=== PATIENT | female | born 1965 | race Caucasian/White ===

== ENCOUNTER 2017-04-26 12:02 | Inpatient (IN) | payer MEDICAID, OTHER ==
[~2017-04-26] VITALS: Ht 165.1 cm; Wt 83.0 kg
[~2017-04-26 12:02] MED LIST: ATOR10TA PO; BUME2TAB3 PO; COR6 PO; DIPH25CA83 PO; DOCU-138 PO; FAMO-135 PO; FURO-151 PO; GABA100C PO; LISI10TA5 PO; MAGN400C PO; MULT-1146 PO; MYCO180T PO; PRED5TAB PO; PROG1 PO; SULF1TAB47 PO; TRAM50TA73 PO; VALC450 PO; [UNRECOGNIZED DRUG - CODE] PO; [UNRECOGNIZED DRUG - CODE] PO
[2017-04-26 14:21] LABS: BASOPHILS % 0.5 % (0.0-2.0); EOSINOPHILS % 1.1 % (0.0-5.0); HEMATOCRIT. 32.4 % (36.0-48.0); HEMOGLOBIN. 10.5 g/dL (12.0-16.0); LYMPHOCYTES % 11.6 % (20.0-50.0); MEAN CORPUSCULAR HEMOGLOBIN 29.9 pg (28.0-32.0); MEAN PLATELET VOLUME 7.1 fl (7.4-10.4); MONOCYTES % 7.4 % (2.0-8.0); NEUTROPHILS % 79.4 % (40.0-76.0); PLATELET 155 x1000/uL (130-400); RED BLOOD CELL COUNT 3.52 mill/uL (4.2-5.4); RED CELL DISTRIBUTION WIDTH 15.8 % (11.6-14.6)
[2017-04-26 14:24] LABS: INR 1.1; PROTHROMBIN TIME 11.4 sec (9.4-11.6)
[2017-04-26 14:32] LABS: CARBON DIOXIDE 18 mEq/L (21-32); CHLORIDE 115 mEq/L (98-107); TROPONIN I < 0.02 ng/mL (0.00-0.04)
[2017-04-26] MEDS ORDERED: FUROSEMIDE 40MG/4ML VIAL IVP ONE (15:15)
[2017-04-26 22:30] VITALS: BP 167/64
[2017-04-26 22:50] VITALS: BP 140/58
[2017-04-26] MEDS ORDERED: SULFAMETHOXAZOLE/TRIMETHOPRIM 400/80MG TAB PO SCH (23:45)
[2017-04-26] MEDS ORDERED: METOCLOPRAMIDE HCL 10MG TABLET PO SCH (23:45)
[2017-04-26] MEDS ORDERED: SULF1TAB47 PO (23:47)
[2017-04-26] MEDS ORDERED: FERR325T6 PO (23:47)
[2017-04-26] MEDS ORDERED: TYLENOL #3 PO (23:47)
[2017-04-26] MEDS ORDERED: ZOLP5TAB2 PO (23:47)
[2017-04-26] MEDS ORDERED: HYDR200T35 PO (23:47)
[2017-04-26] MEDS ORDERED: METO-293 PO (23:47)
[2017-04-26] MEDS ORDERED: AMLO5TAB4 PO (23:47)
[2017-04-26] MEDS ORDERED: ALLO100T PO (23:47)
[2017-04-26] MEDS ORDERED: PROG1 PO (23:48)
[2017-04-27] VITALS: BP 140/58
[2017-04-27] MEDS ORDERED: ZOLPIDEM TARTRATE 5MG TABLET PO PRN
[2017-04-27] MEDS ORDERED: CLONIDINE 0.1MG TABLET PO PRN
[2017-04-27] MEDS: HYDROXYCHLOROQUINE SULFATE 200MG TABLET PO SCH ×3 (00:30→17:59)
[2017-04-27] MEDS ORDERED: DOCUSATE SODIUM 100MG CAPSULE PO PRN (00:30)
[2017-04-27] MEDS ORDERED: TACROLIMUS 0.5 MG CAPSULE PO SCH (01:00)
[2017-04-27] MEDS ORDERED: TACROLIMUS 1MG CAPSULE PO SCH (01:00)
[2017-04-27] MEDS ORDERED: MYCOPHENOLATE SODIUM 180 MG TABLET.DR PO SCH (01:00)
[2017-04-27 04:00] VITALS: BP 126/46
[2017-04-27 04:03] LABS: CREATINE KINASE 48 IU/L (26-192); CREATINE KINASE MB FRACTION 0.5 ng/mL (0.5-3.6); TROPONIN I < 0.02 ng/mL (0.00-0.04)
[2017-04-27 08:00] VITALS: BP 127/57
[2017-04-27] MEDS: CARVEDILOL 6.25 MG TABLET PO SCH ×2 (09:00→20:15)
[2017-04-27] MEDS: FAMOTIDINE 20MG TABLET PO SCH (09:02)
[2017-04-27] MEDS: PREDNISONE 5MG TABLET PO SCH (09:02)
[2017-04-27] MEDS: AMLODIPINE 5MG TABLET PO SCH (09:03)
[2017-04-27] MEDS: FERROUS SULFATE 325MG TABLET PO SCH ×3 (09:03→17:55)
[2017-04-27] MEDS: TACROLIMUS 0.5 MG CAPSULE PO SCH ×2 (09:03→20:14)
[2017-04-27] MEDS: MYCOPHENOLATE SODIUM 180 MG TABLET.DR PO SCH ×2 (09:04→20:17)
[2017-04-27] MEDS: ALLOPURINOL 100 MG TABLET PO SCH (09:05)
[2017-04-27] MEDS: METOCLOPRAMIDE HCL 5MG TABLET PO PRN ×2 (09:14→20:15)
[2017-04-27 09:52] LABS: CREATINE KINASE 43 IU/L (26-192); CREATINE KINASE MB FRACTION < 0.5 ng/mL (0.5-3.6); TROPONIN I < 0.02 ng/mL (0.00-0.04)
[2017-04-27 12:00] VITALS: BP 132/55
[2017-04-27] MEDS: TACROLIMUS 1MG CAPSULE PO SCH ×2 (12:06→20:14)
[2017-04-27 16:00] VITALS: BP 123/59
[2017-04-27 20:00] VITALS: BP 149/53
[2017-04-27 20:41] LABS: BASOPHILS % 0.4 % (0.0-2.0); EOSINOPHILS % 0.9 % (0.0-5.0); HEMATOCRIT. 35.7 % (36.0-48.0); HEMOGLOBIN. 11.6 g/dL (12.0-16.0); LYMPHOCYTES % 13.2 % (20.0-50.0); MEAN CORPUSCULAR HEMOGLOBIN 29.9 pg (28.0-32.0); MEAN CORPUSCULAR VOLUME 91.9 fL (81.0-99.0); MEAN PLATELET VOLUME 7.6 fl (7.4-10.4); MONOCYTES % 8.5 % (2.0-8.0); PLATELET 175 x1000/uL (130-400); RED BLOOD CELL COUNT 3.88 mill/uL (4.2-5.4); RED CELL DISTRIBUTION WIDTH 15.8 % (11.6-14.6)
[2017-04-27 20:57] LABS: CARBON DIOXIDE 19 mEq/L (21-32); CHLORIDE 113 mEq/L (98-107); HDL CHOLESTEROL 78 mg/dL (40-59); LDL CHOLESTEROL 82 mg/dL (5-100)
[2017-04-27 20:58] LABS: TROPONIN I < 0.02 ng/mL (0.00-0.04)
[2017-04-27] MEDS ORDERED: ATORVASTATIN CALCIUM 10MG TABLET PO SCH (21:00)
[2017-04-27] MEDS: ACETAMINOPHEN WITH CODEINE 300/30MG TABLET PO PRN (23:03)
[2017-04-28 00:01] VITALS: BP 151/62
[2017-04-28 04:00] VITALS: BP 119/52
[2017-04-28] MEDS: TACROLIMUS 0.5 MG CAPSULE PO SCH (07:08)
[2017-04-28] MEDS: TACROLIMUS 1MG CAPSULE PO SCH (07:08)
[2017-04-28 08:04] VITALS: BP 137/55
[2017-04-28] MEDS: MYCOPHENOLATE SODIUM 180 MG TABLET.DR PO SCH (08:33)
[2017-04-28] MEDS: ALLOPURINOL 100 MG TABLET PO SCH (08:33)
[2017-04-28] MEDS: FERROUS SULFATE 325MG TABLET PO SCH ×3 (08:33→17:42)
[2017-04-28] MEDS: HYDROXYCHLOROQUINE SULFATE 200MG TABLET PO SCH ×2 (08:33→17:42)
[2017-04-28] MEDS: PREDNISONE 5MG TABLET PO SCH (08:33)
[2017-04-28] MEDS: CARVEDILOL 6.25 MG TABLET PO SCH (08:34)
[2017-04-28] MEDS: AMLODIPINE 5MG TABLET PO SCH (08:34)
[2017-04-28] MEDS: FAMOTIDINE 20MG TABLET PO SCH (08:34)
[2017-04-28] MEDS ORDERED: SODIUM POLYSTYRENE SULFONATE 15 G/60 ML BOT PO SCH (08:45)
[2017-04-28] MEDS: ACETAMINOPHEN WITH CODEINE 300/30MG TABLET PO PRN (11:48)
[2017-04-28 12:00] VITALS: BP 146/59
[2017-04-28 16:00] VITALS: BP 140/58
[2017-04-28 17:34] VITALS: BP 140/58
[2017-04-29] MEDS ORDERED: SULFAMETHOXAZOLE/TRIMETHOPRIM 400/80MG TAB PO SCH (09:00)
== END 2017-04-28 19:00 | disposition home or self-care (01) | DRG 194 ==
LOC: ER 12:15 → 7WST 15:33 → ENRESERV 20:47
PROVIDERS: ADMIT Family Medicine; ATTEND Family Medicine
DX: I13.0 Hypertensive heart and chronic kidney disease with heart failure and stage 1 through stage 4 chronic kidney disease, or unspecified chronic kidney disease (principal); M32.9 Systemic lupus erythematosus, unspecified; N18.3 Chronic kidney disease, stage 3 (moderate); I50.33 Acute on chronic diastolic (congestive) heart failure; E87.5 Hyperkalemia; Z94.0 Kidney transplant status; M19.90 Unspecified osteoarthritis, unspecified site; E21.3 Hyperparathyroidism, unspecified; E78.5 Hyperlipidemia, unspecified; Z79.899 Other long term (current) drug therapy; Z82.49 Family history of ischemic heart disease and other diseases of the circulatory system; Z83.3 Family history of diabetes mellitus; Z99.2 Dependence on renal dialysis; Z98.51 Tubal ligation status; K21.9 Gastro-esophageal reflux disease without esophagitis; D63.8 Anemia in other chronic diseases classified elsewhere
CPT/HCPCS: 36415; 71010; 80053; 80061; 80197; 82550; 82553; 83036; 83880; 84132; 84484; 85025; 85610; 93005; 99285; J1940; J7507; J7512; J7517; J8597

== ENCOUNTER 2017-06-01 16:53 | Inpatient (IN) | payer MEDICAID, OTHER ==
[~2017-06-01] VITALS: Ht 165.1 cm; Wt 81.0 kg
[~2017-06-01 16:53] MED LIST changes: +ALLO100T PO; +AMLO5TAB4 PO; -BUME2TAB3 PO; -DIPH25CA83 PO; -DOCU-138 PO; +FERR325T6 PO; -FURO-151 PO; -GABA100C PO; +HYDR200T35 PO; -LISI10TA5 PO; -MULT-1146 PO; -TRAM50TA73 PO; +TYLENOL #3 PO; -VALC450 PO; -[UNRECOGNIZED DRUG - CODE] PO
[2017-06-01 18:57] LABS: BASOPHILS % 0.3 % (0.0-2.0); EOSINOPHILS % 0.8 % (0.0-5.0); HEMATOCRIT. 33.5 % (36.0-48.0); HEMOGLOBIN. 11.1 g/dL (12.0-16.0); LYMPHOCYTES % 12.3 % (20.0-50.0); MEAN CORPUSCULAR HEMOGLOBIN 30.8 pg (28.0-32.0); MEAN CORPUSCULAR VOLUME 92.9 fL (81.0-99.0); MEAN PLATELET VOLUME 7.1 fl (7.4-10.4); NEUTROPHILS % 78.6 % (40.0-76.0); PLATELET 182 x1000/uL (130-400); RED BLOOD CELL COUNT 3.61 mill/uL (4.2-5.4); RED CELL DISTRIBUTION WIDTH 15.2 % (11.6-14.6)
[2017-06-01 19:13] LABS: CARBON DIOXIDE 24 mEq/L (21-32); CHLORIDE 109 mEq/L (98-107); TROPONIN I < 0.02 ng/mL (0.00-0.04)
[2017-06-02 01:30] VITALS: BP 165/70
[2017-06-02] MEDS ORDERED: ZOLP10TA6 PO (02:02)
[2017-06-02] MEDS ORDERED: SODI650T PO (02:09)
[2017-06-02] MEDS ORDERED: MULT-904 PO (02:09)
[2017-06-02] MEDS ORDERED: MYCO180T3 PO (02:10)
[2017-06-02] MEDS ORDERED: LISI-604 PO (02:10)
[2017-06-02] MEDS ORDERED: MORPHINE SULFATE 10 MG/ML CPJ IV PRN (02:15)
[2017-06-02] MEDS ORDERED: TYLENOL PO SCH (02:15)
[2017-06-02] MEDS: ACETAMINOPHEN WITH CODEINE 300/30MG TABLET PO PRN ×2 (02:47→09:07)
[2017-06-02] MEDS: ZOLPIDEM TARTRATE 5MG TABLET PO PRN (02:47)
[2017-06-02 03:54] VITALS: BP 123/49
[2017-06-02 06:40] LABS: BASOPHILS % 0.4 % (0.0-2.0); EOSINOPHILS % 1.5 % (0.0-5.0); HEMATOCRIT. 31.6 % (36.0-48.0); HEMOGLOBIN. 10.5 g/dL (12.0-16.0); LYMPHOCYTES % 20.6 % (20.0-50.0); MEAN CORPUSCULAR HEMOGLOBIN 30.6 pg (28.0-32.0); MEAN CORPUSCULAR VOLUME 91.5 fL (81.0-99.0); MEAN PLATELET VOLUME 7.3 fl (7.4-10.4); NEUTROPHILS % 66.5 % (40.0-76.0); PLATELET 171 x1000/uL (130-400); RED BLOOD CELL COUNT 3.45 mill/uL (4.2-5.4); RED CELL DISTRIBUTION WIDTH 14.6 % (11.6-14.6)
[2017-06-02 08:00] VITALS: BP 132/61
[2017-06-02] MEDS ORDERED: MULTIVITAMINS PO SCH (09:00)
[2017-06-02] MEDS ORDERED: MYCOPHENOLATE SODIUM 180 MG TABLET.DR PO SCH (09:00)
[2017-06-02] MEDS: CARVEDILOL 6.25 MG TABLET PO SCH ×2 (09:00→16:57)
[2017-06-02] MEDS ORDERED: MEDICATION NOT ON FORMULARY EA (Magnesium Oxide (Magnesium) 400 MG) PO SCH (09:00)
[2017-06-02] MEDS: PREDNISONE 5MG TABLET PO SCH (09:07)
[2017-06-02] MEDS: ALLOPURINOL 100 MG TABLET PO SCH (09:07)
[2017-06-02] MEDS: MULTIVITAMINS,THER W-MINERALS TABLET PO SCH (09:07)
[2017-06-02] MEDS: HYDROXYCHLOROQUINE SULFATE 200MG TABLET PO SCH ×2 (09:08→17:00)
[2017-06-02] MEDS: SODIUM BICARBONATE 650 MG TABLET PO SCH ×2 (09:08→16:58)
[2017-06-02] MEDS: AMLODIPINE 10MG TABLET PO SCH (09:08)
[2017-06-02] MEDS: LISINOPRIL 20MG TABLET PO SCH ×2 (09:08→21:24)
[2017-06-02] MEDS: MAGNESIUM OXIDE 400MG TABLET PO SCH ×3 (09:08→17:00)
[2017-06-02] MEDS: FAMOTIDINE 20MG TABLET PO SCH (09:09)
[2017-06-02] MEDS: TACROLIMUS 1MG CAPSULE PO SCH ×2 (09:10→16:59)
[2017-06-02] MEDS: MYCOPHENOLATE SODIUM 180 MG TABLET.DR PO SCH ×2 (10:48→17:00)
[2017-06-02] MEDS: TACROLIMUS 0.5 MG CAPSULE PO SCH ×2 (10:51→16:59)
[2017-06-02 12:00] VITALS: BP 136/58
[2017-06-02 16:00] VITALS: BP 132/56
[2017-06-02] MEDS ORDERED: MEDICATION NOT ON FORMULARY EA (Zolpidem Tartrate 1 TAB) PO SCH ×2 (17:00)
[2017-06-02 20:00] VITALS: BP 152/70
[2017-06-02] MEDS ORDERED: ATORVASTATIN CALCIUM 10MG TABLET PO SCH (21:00)
[2017-06-03] MEDS: ZOLPIDEM TARTRATE 5MG TABLET PO PRN (00:21)
[2017-06-03 00:27] VITALS: BP 141/62
[2017-06-03 04:00] VITALS: BP 152/58
[2017-06-03 08:00] VITALS: BP 141/56
[2017-06-03] MEDS: HYDROXYCHLOROQUINE SULFATE 200MG TABLET PO SCH (08:21)
[2017-06-03] MEDS: MYCOPHENOLATE SODIUM 180 MG TABLET.DR PO SCH (08:22)
[2017-06-03] MEDS: MULTIVITAMINS,THER W-MINERALS TABLET PO SCH (08:22)
[2017-06-03] MEDS: LISINOPRIL 20MG TABLET PO SCH (08:22)
[2017-06-03] MEDS: TACROLIMUS 0.5 MG CAPSULE PO SCH (08:23)
[2017-06-03] MEDS: ALLOPURINOL 100 MG TABLET PO SCH (08:24)
[2017-06-03] MEDS: FAMOTIDINE 20MG TABLET PO SCH (08:24)
[2017-06-03] MEDS: MAGNESIUM OXIDE 400MG TABLET PO SCH ×2 (08:24→12:35)
[2017-06-03] MEDS: TACROLIMUS 1MG CAPSULE PO SCH (08:24)
[2017-06-03] MEDS: AMLODIPINE 10MG TABLET PO SCH (08:24)
[2017-06-03] MEDS: PREDNISONE 5MG TABLET PO SCH (08:25)
[2017-06-03] MEDS: SODIUM BICARBONATE 650 MG TABLET PO SCH (08:25)
[2017-06-03] MEDS: CARVEDILOL 6.25 MG TABLET PO SCH (08:25)
[2017-06-03 12:00] VITALS: BP 105/48
[2017-06-03 14:55] VITALS: BP 141/61
[2017-06-08] MEDS ORDERED: ERGOCALCIFEROL 50000UNITS CAPSULE PO SCH (09:00)
== END 2017-06-03 15:50 | disposition home or self-care (01) | DRG 351 ==
LOC: ER 19:19 → ENRESERV 06-02 00:28 → 5WST 06-02 02:09
PROVIDERS: ADMIT Internal Medicine; ATTEND Internal Medicine
DX: M79.89 Other specified soft tissue disorders (principal); I50.43 Acute on chronic combined systolic (congestive) and diastolic (congestive) heart failure; N17.9 Acute kidney failure, unspecified; I13.2 Hypertensive heart and chronic kidney disease with heart failure and with stage 5 chronic kidney disease, or end stage renal disease; E78.5 Hyperlipidemia, unspecified; I25.10 Atherosclerotic heart disease of native coronary artery without angina pectoris; M19.90 Unspecified osteoarthritis, unspecified site; J44.9 Chronic obstructive pulmonary disease, unspecified; E78.00 Pure hypercholesterolemia, unspecified; Z79.899 Other long term (current) drug therapy; Z82.49 Family history of ischemic heart disease and other diseases of the circulatory system; Z94.0 Kidney transplant status; Z98.51 Tubal ligation status; N18.6 End stage renal disease
CPT/HCPCS: 36415; 71010; 80048; 80053; 80061; 83880; 84484; 85025; 93005; 93971; 99285; J7507; J7512; J7517

== ENCOUNTER 2017-11-28 04:21 | Emergency (ER) | payer OTHER ==
[~2017-11-28] VITALS: Ht 165.1 cm; Wt 78.0 kg
[~2017-11-28 04:21] MED LIST changes: +AMLO10TA80 PO; +BUME1TAB4 MT; +CALC0.253 PO; -FERR325T6 PO; +LISI-604 PO; +LORA1TAB MT; +MULT-904 PO; -MYCO180T PO; +MYCO180T3 PO; +OMEP20CA10 MT; +ONDA4TAB5 PO; +SODI650T PO; -SULF1TAB47 PO; +ZOLP10TA6 PO
[2017-11-28 06:58] LABS: CLARITY URINE CLEAR (CLEAR); COLOR URINE YELLOW (YELLOW); KETONES URINE NEGATIVE (NEGATIVE); LEUKOCYTE ESTERASE URINE NEGATIVE (NEGATIVE); NITRITE URINE NEGATIVE (NEGATIVE); OCCULT BLOOD URINE 1+ (NEGATIVE); PROTEIN URINE 2+ (NEGATIVE); SPECIFIC GRAVITY URINE 1.016 (1.005-1.030); UROBILINOGEN URINE 0.2 E.U./dL (0.2-1.0)
[2017-11-28 07:12] LABS: BASOPHILS % 0.1 % (0.0-2.0); EOSINOPHILS % 0.2 % (0.0-5.0); HEMATOCRIT. 32.1 % (36.0-48.0); HEMOGLOBIN. 10.7 g/dL (12.0-16.0); LYMPHOCYTES % 8.1 % (20.0-50.0); MEAN CORPUSCULAR HEMOGLOBIN 29.9 pg (28.0-32.0); MEAN CORPUSCULAR VOLUME 90.1 fL (81.0-99.0); MEAN PLATELET VOLUME 6.6 fl (7.4-10.4); MONOCYTES % 9.1 % (2.0-8.0); NEUTROPHILS % 82.5 % (40.0-76.0); PLATELET 163 x1000/uL (130-400); RED BLOOD CELL COUNT 3.57 mill/uL (4.2-5.4); RED CELL DISTRIBUTION WIDTH 16.2 % (11.6-14.6)
[2017-11-28 07:16] LABS: CHLORIDE 112 mEq/L (98-107)
[2017-11-28 07:17] LABS: INR 1.1; PROTHROMBIN TIME 11.4 sec (9.4-11.6)
[2017-11-28] MEDS ORDERED: TRAMADOL 50MG TABLET PO ONE (08:45)
[2017-11-28 11:49] VITALS: BP 130/64
== END 2017-11-28 11:53 | disposition home or self-care (01) ==
LOC: ER 04:21
DX: R10.13 Epigastric pain (principal); R11.2 Nausea with vomiting, unspecified; R19.7 Diarrhea, unspecified; I10 Essential (primary) hypertension; E78.00 Pure hypercholesterolemia, unspecified; M32.9 Systemic lupus erythematosus, unspecified; Z94.0 Kidney transplant status
CPT/HCPCS: 36415; 80053; 81003; 83690; 85025; 85610; 99284; Z7610

== ENCOUNTER 2017-12-02 09:21 | Inpatient (IN) | payer MEDICAID, OTHER ==
[~2017-12-02] VITALS: Ht 162.6 cm; Wt 88.0 kg
[2017-12-02] MEDS ORDERED: SODIUM CHLORIDE 0.9% 1,000 ML IV ONE (10:11)
[2017-12-02 10:38] LABS: HEMATOCRIT. 29.4 % (36.0-48.0); HEMOGLOBIN. 9.8 g/dL (12.0-16.0); MEAN CORPUSCULAR HEMOGLOBIN 29.9 pg (28.0-32.0); MEAN CORPUSCULAR VOLUME 89.5 fL (81.0-99.0); MEAN PLATELET VOLUME 7.6 fl (7.4-10.4); PLATELET 78 x1000/uL (130-400); RED BLOOD CELL COUNT 3.28 mill/uL (4.2-5.4); RED CELL DISTRIBUTION WIDTH 16.4 % (11.6-14.6)
[2017-12-02 10:41] LABS: CHLORIDE 104 mEq/L (98-107)
[2017-12-02 10:42] LABS: INR 1.1; PROTHROMBIN TIME 11.9 sec (9.4-11.6)
[2017-12-02 11:30] LABS: PLATELET ESTIMATE DECREASED
[2017-12-02] MEDS ORDERED: METHYLPREDNISOLONE SOD SUCC 1,000 MG in DEXT 5% WATER 100 ML IV ONE (12:45)
[2017-12-02] MEDS ORDERED: SODIUM CHLORIDE 0.9% 500 ML IV ONE (13:18)
[2017-12-02 16:00] VITALS: BP 124/51
[2017-12-02 16:28] VITALS: BP 124/51
[2017-12-02] MEDS ORDERED: DOCUSATE SODIUM 100MG CAPSULE PO PRN (18:00)
[2017-12-02] MEDS ORDERED: CLONIDINE 0.1MG TABLET PO PRN (18:00)
[2017-12-02] MEDS ORDERED: IPRATROPIUM/ALBUTEROL 0.5-3(2.5)MG/3ML NEB INH PRN (18:00)
[2017-12-02] MEDS ORDERED: GUAIFENESIN 200MG/10ML SUGAR FREE UDC PO PRN (18:00)
[2017-12-02 20:00] VITALS: BP 129/63
[2017-12-02] MEDS ORDERED: ONDANSETRON HCL 4MG/2ML VIAL IV PRN (20:00)
[2017-12-02] MEDS ORDERED: HYDROMORPHONE HCL/PF 2MG/ML CPJ IV PRN (20:45)
[2017-12-02] MEDS ORDERED: FUROSEMIDE 40MG/4ML VIAL IVP NR (21:15)
[2017-12-02] MEDS: ATORVASTATIN CALCIUM 10MG TABLET PO SCH (21:29)
[2017-12-02] MEDS: HYDROCODONE/ACETAMINOPHEN 5/325MG TABLET PO PRN (21:30)
[2017-12-02] MEDS: SODIUM CHLORIDE 0.9% 1,000 ML IV SCH (21:54)
[2017-12-03] VITALS: BP 133/54
[2017-12-03 04:00] VITALS: BP 127/49
[2017-12-03 06:51] LABS: HEMOGLOBIN. 9.6 g/dL (12.0-16.0); MEAN CORPUSCULAR HEMOGLOBIN 30.2 pg (28.0-32.0); MEAN CORPUSCULAR VOLUME 88.3 fL (81.0-99.0); MEAN PLATELET VOLUME 8.1 fl (7.4-10.4); PLATELET 75 x1000/uL (130-400); RED BLOOD CELL COUNT 3.17 mill/uL (4.2-5.4); RED CELL DISTRIBUTION WIDTH 15.9 % (11.6-14.6)
[2017-12-03 07:00] LABS: CHLORIDE 105 mEq/L (98-107)
[2017-12-03 07:08] LABS: PHOSPHORUS 5.4 mg/dL (2.5-4.9)
[2017-12-03] MEDS ORDERED: FENTANYL CITRATE/PF 50MCG/ML 2ML VIAL ONE (08:35)
[2017-12-03] MEDS ORDERED: MIDAZOLAM HCL 2 MG/2 ML VIAL ONE (08:36)
[2017-12-03] MEDS ORDERED: TACROLIMUS 1MG CAPSULE PO SCH (09:00)
[2017-12-03] MEDS ORDERED: METHYLPREDNISOLONE SOD SUCC 500 MG in DEXT 5% WATER 100 ML IV SCH (09:00)
[2017-12-03] MEDS: HYDROXYCHLOROQUINE SULFATE 200MG TABLET PO SCH ×2 (09:00→20:56)
[2017-12-03] MEDS: CALCITRIOL 0.25MCG CAPSULE PO SCH (09:33)
[2017-12-03] MEDS: MYCOPHENOLATE SODIUM 180 MG TABLET.DR PO SCH ×2 (09:34→20:40)
[2017-12-03] MEDS: OMEPRAZOLE 20MG CAPSULE EXTENDED RELEASE PO SCH (09:34)
[2017-12-03] MEDS: TACROLIMUS 1MG CAPSULE PO SCH ×2 (09:34→20:41)
[2017-12-03] MEDS: TACROLIMUS 0.5 MG CAPSULE PO SCH ×2 (09:34→20:39)
[2017-12-03] MEDS: LORAZEPAM 1MG TABLET PO SCH ×3 (09:35→20:40)
[2017-12-03] MEDS: CARVEDILOL 6.25 MG TABLET PO SCH ×2 (09:35→20:39)
[2017-12-03] MEDS: AMLODIPINE 10MG TABLET PO SCH (09:36)
[2017-12-03] MEDS: ALLOPURINOL 100 MG TABLET PO SCH (10:14)
[2017-12-03] MEDS: FUROSEMIDE 40MG/4ML VIAL IVP SCH (10:14)
[2017-12-03 12:00] VITALS: BP 145/62
[2017-12-03] MEDS: SODIUM CHLORIDE 0.9% 1,000 ML IV SCH (13:34)
[2017-12-03 14:25] LABS: PLATELET ESTIMATE DECREASED
[2017-12-03 16:00] VITALS: BP 135/80
[2017-12-03 20:00] VITALS: BP 141/81
[2017-12-03] MEDS: ATORVASTATIN CALCIUM 10MG TABLET PO SCH (20:40)
[2017-12-03] MEDS ORDERED: FUROSEMIDE 40MG/4ML VIAL IVP NR (23:15)
[2017-12-04] VITALS (12 sets, daily range): BP systolic 110–136; BP diastolic 52–78
[2017-12-04] MEDS ORDERED: DEXTROSE 50% WATER 50ML SYRINGE IV PRN (00:45)
[2017-12-04 07:15] LABS: HEMATOCRIT. 26.9 % (36.0-48.0); HEMOGLOBIN. 8.7 g/dL (12.0-16.0); MEAN CORPUSCULAR HEMOGLOBIN 29.2 pg (28.0-32.0); MEAN PLATELET VOLUME 8.2 fl (7.4-10.4); PLATELET 117 x1000/uL (130-400); RED BLOOD CELL COUNT 2.99 mill/uL (4.2-5.4); RED CELL DISTRIBUTION WIDTH 16.8 % (11.6-14.6)
[2017-12-04] MEDS: BLOOD SUGAR DIAGNOSTIC STRIP TEST SCH ×4 (07:20→21:10)
[2017-12-04 07:33] LABS: PHOSPHORUS 4.8 mg/dL (2.5-4.9)
[2017-12-04] MEDS: MYCOPHENOLATE SODIUM 180 MG TABLET.DR PO SCH ×2 (08:02→17:53)
[2017-12-04] MEDS: FUROSEMIDE 40MG/4ML VIAL IVP SCH (08:02)
[2017-12-04] MEDS: CALCITRIOL 0.25MCG CAPSULE PO SCH (08:02)
[2017-12-04] MEDS: TACROLIMUS 0.5 MG CAPSULE PO SCH ×2 (08:02→17:54)
[2017-12-04] MEDS: TACROLIMUS 1MG CAPSULE PO SCH ×2 (08:03→17:54)
[2017-12-04] MEDS: OMEPRAZOLE 20MG CAPSULE EXTENDED RELEASE PO SCH (08:04)
[2017-12-04] MEDS: CARVEDILOL 6.25 MG TABLET PO SCH ×2 (08:04→17:53)
[2017-12-04] MEDS: LORAZEPAM 1MG TABLET PO SCH ×3 (08:04→17:53)
[2017-12-04] MEDS: ALLOPURINOL 100 MG TABLET PO SCH (08:04)
[2017-12-04] MEDS: AMLODIPINE 10MG TABLET PO SCH (08:04)
[2017-12-04] MEDS: HYDROXYCHLOROQUINE SULFATE 200MG TABLET PO SCH ×2 (08:09→17:54)
[2017-12-04] MEDS ORDERED: FENTANYL CITRATE/PF 50MCG/ML 2ML VIAL ONE (10:27)
[2017-12-04] MEDS ORDERED: SODIUM BICARBONATE 4% (2.4MEQ) 5ML VIAL IV ONE (10:33)
[2017-12-04] MEDS ORDERED: LIDOCAINE HCL/PF 1% 10 MG/ML 30ML VIAL ONE (10:33)
[2017-12-04] MEDS ORDERED: FENTANYL CITRATE/PF 50MCG/ML 2ML VIAL IV ONE (10:50)
[2017-12-04] MEDS ORDERED: METHYLPREDNISOLONE SOD SUCC 500 MG in DEXT 5% WATER 100 ML IV NR (11:00)
[2017-12-04 12:46] LABS: FOLIC ACID (FOLATE) SERUM 10.5 ng/mL (>5.38)
[2017-12-04 15:32] LABS: PLATELET ESTIMATE SLIGHTLY DECREASED
[2017-12-04 16:45] LABS: HEMATOCRIT. 26.7 % (36.0-48.0); HEMOGLOBIN. 8.9 g/dL (12.0-16.0); MEAN CORPUSCULAR HEMOGLOBIN 29.8 pg (28.0-32.0); MEAN CORPUSCULAR VOLUME 89.8 fL (81.0-99.0); MEAN PLATELET VOLUME 8.4 fl (7.4-10.4); PLATELET 133 x1000/uL (130-400); RED BLOOD CELL COUNT 2.97 mill/uL (4.2-5.4); RED CELL DISTRIBUTION WIDTH 16.9 % (11.6-14.6)
[2017-12-04 16:59] LABS: PLATELET ESTIMATE NORMAL
[2017-12-04 17:09] LABS: ANTI-DNA DOUBLE STRANDED QUANT < 1 IU/mL (0-9)
[2017-12-04] MEDS: ATORVASTATIN CALCIUM 10MG TABLET PO SCH (21:09)
[2017-12-04] MEDS: DIPHENHYDRAMINE 50MG/ML VIAL IV PRN (22:04)
[2017-12-04] MEDS: ACETAMINOPHEN 325MG TABLET PO PRN (22:15)
[2017-12-05] VITALS (7 sets, daily range): BP systolic 109–133; BP diastolic 47–64
[2017-12-05 06:05] LABS: HEMATOCRIT. 23.4 % (36.0-48.0); MEAN CORPUSCULAR HEMOGLOBIN 30.2 pg (28.0-32.0); MEAN CORPUSCULAR VOLUME 88.7 fL (81.0-99.0); MEAN PLATELET VOLUME 7.7 fl (7.4-10.4); PLATELET 127 x1000/uL (130-400); RED BLOOD CELL COUNT 2.64 mill/uL (4.2-5.4); RED CELL DISTRIBUTION WIDTH 16.6 % (11.6-14.6)
[2017-12-05 06:46] LABS: PHOSPHORUS 5.7 mg/dL (2.5-4.9)
[2017-12-05 07:17] LABS: PLATELET ESTIMATE SLIGHTLY DECREASED
[2017-12-05] MEDS: BLOOD SUGAR DIAGNOSTIC STRIP TEST SCH ×4 (07:40→21:03)
[2017-12-05] MEDS: FUROSEMIDE 40MG/4ML VIAL IVP SCH (08:53)
[2017-12-05] MEDS: MYCOPHENOLATE SODIUM 180 MG TABLET.DR PO SCH ×2 (08:54→18:01)
[2017-12-05] MEDS: TACROLIMUS 1MG CAPSULE PO SCH ×2 (08:54→18:12)
[2017-12-05] MEDS: TACROLIMUS 0.5 MG CAPSULE PO SCH ×2 (08:54→18:12)
[2017-12-05] MEDS: OMEPRAZOLE 20MG CAPSULE EXTENDED RELEASE PO SCH (08:54)
[2017-12-05] MEDS: ALLOPURINOL 100 MG TABLET PO SCH (08:55)
[2017-12-05] MEDS: CALCITRIOL 0.25MCG CAPSULE PO SCH (08:55)
[2017-12-05] MEDS: LORAZEPAM 1MG TABLET PO SCH ×3 (08:55→18:01)
[2017-12-05] MEDS: CARVEDILOL 6.25 MG TABLET PO SCH ×2 (08:57→18:02)
[2017-12-05] MEDS: PREDNISONE 20MG TABLET PO SCH (09:00)
[2017-12-05] MEDS: AMLODIPINE 10MG TABLET PO SCH (09:00)
[2017-12-05] MEDS: HYDROXYCHLOROQUINE SULFATE 200MG TABLET PO SCH ×2 (09:02→18:01)
[2017-12-05 09:06] LABS: COMPLEMENT C3 72 mg/dL (82-167)
[2017-12-05] MEDS: CALCIUM ACETATE 667MG CAPSULE PO SCH ×2 (12:32→18:01)
[2017-12-05] MEDS: FOLIC ACID/VITAMIN B COMP W-C TABLET PO SCH (12:32)
[2017-12-05 15:07] LABS: FOLATE HEMOLYSATE 334.8 ng/mL (Not Estab.); FOLATE RBC 1288 ng/mL (>498)
[2017-12-05 17:10] LABS: ANA IFA Negative (.)
[2017-12-05] MEDS: ATORVASTATIN CALCIUM 10MG TABLET PO SCH (21:05)
[2017-12-05] MEDS: ACETAMINOPHEN 325MG TABLET PO PRN (23:39)
[2017-12-06 04:00] VITALS: BP 133/49
[2017-12-06 04:13] LABS: COMPLEMENT TOTAL CH50 49 U/mL (>41)
[2017-12-06] MEDS: BLOOD SUGAR DIAGNOSTIC STRIP TEST SCH ×4 (05:58→21:33)
[2017-12-06] MEDS: HYDROCODONE/ACETAMINOPHEN 5/325MG TABLET PO PRN ×3 (05:58→20:17)
[2017-12-06] MEDS: ONDANSETRON HCL 4MG/2ML VIAL IV PRN ×2 (06:03→10:10)
[2017-12-06 06:24] LABS: HEMOGLOBIN. 8.7 g/dL (12.0-16.0); MEAN CORPUSCULAR HEMOGLOBIN 29.6 pg (28.0-32.0); MEAN CORPUSCULAR VOLUME 88.7 fL (81.0-99.0); PLATELET 165 x1000/uL (130-400); RED BLOOD CELL COUNT 2.93 mill/uL (4.2-5.4); RED CELL DISTRIBUTION WIDTH 16.8 % (11.6-14.6)
[2017-12-06 07:20] LABS: CHLORIDE 109 mEq/L (98-107)
[2017-12-06 07:52] LABS: TOTAL IRON BINDING CAPACITY 147 ug/dL (250-450)
[2017-12-06 07:54] LABS: PHOSPHORUS 5.7 mg/dL (2.5-4.9)
[2017-12-06 07:56] LABS: CREATINE KINASE 48 IU/L (26-192)
[2017-12-06 08:00] VITALS: BP 128/58
[2017-12-06] MEDS: LORAZEPAM 1MG TABLET PO SCH ×3 (08:21→16:57)
[2017-12-06] MEDS: PREDNISONE 20MG TABLET PO SCH (08:21)
[2017-12-06] MEDS: HYDROXYCHLOROQUINE SULFATE 200MG TABLET PO SCH ×2 (08:21→16:57)
[2017-12-06] MEDS: OMEPRAZOLE 20MG CAPSULE EXTENDED RELEASE PO SCH (08:21)
[2017-12-06] MEDS: CALCIUM ACETATE 667MG CAPSULE PO SCH ×3 (08:21→16:56)
[2017-12-06] MEDS: FOLIC ACID/VITAMIN B COMP W-C TABLET PO SCH (08:21)
[2017-12-06] MEDS: CALCITRIOL 0.25MCG CAPSULE PO SCH (08:21)
[2017-12-06] MEDS: ALLOPURINOL 100 MG TABLET PO SCH (08:21)
[2017-12-06] MEDS: FUROSEMIDE 40MG/4ML VIAL IVP SCH (08:21)
[2017-12-06] MEDS: AMLODIPINE 10MG TABLET PO SCH (08:21)
[2017-12-06] MEDS: CARVEDILOL 6.25 MG TABLET PO SCH ×2 (08:22→16:57)
[2017-12-06] MEDS: MYCOPHENOLATE SODIUM 180 MG TABLET.DR PO SCH ×2 (08:22→16:57)
[2017-12-06] MEDS: TACROLIMUS 0.5 MG CAPSULE PO SCH ×2 (10:05→16:57)
[2017-12-06] MEDS: TACROLIMUS 1MG CAPSULE PO SCH ×2 (10:06→16:56)
[2017-12-06 10:29] LABS: PLATELET ESTIMATE NORMAL
[2017-12-06 12:00] VITALS: BP 125/59
[2017-12-06] MEDS: PANTOPRAZOLE SODIUM 40 MG/VIAL IV SCH (14:05)
[2017-12-06 16:00] VITALS: BP 120/53
[2017-12-06] MEDS: INSULIN LISPRO 100 UNITS/ML SUBCUT SCH ×2 (18:13→21:29)
[2017-12-06 20:00] VITALS: BP 172/61
[2017-12-06] MEDS: ATORVASTATIN CALCIUM 10MG TABLET PO SCH (21:29)
[2017-12-06] MEDS: METHYLPREDNISOLONE SOD SUCC 40 MG/ML VIAL IV SCH (21:33)
[2017-12-07] VITALS: BP 115/52
[2017-12-07 04:00] VITALS: BP 115/56
[2017-12-07 07:04] LABS: HEMOGLOBIN. 7.7 g/dL (12.0-16.0); MEAN CORPUSCULAR HEMOGLOBIN 29.7 pg (28.0-32.0); MEAN CORPUSCULAR VOLUME 88.7 fL (81.0-99.0); MEAN PLATELET VOLUME 8.4 fl (7.4-10.4); PLATELET 164 x1000/uL (130-400); RED CELL DISTRIBUTION WIDTH 16.8 % (11.6-14.6)
[2017-12-07 07:36] LABS: PHOSPHORUS 6.3 mg/dL (2.5-4.9)
[2017-12-07] MEDS: BLOOD SUGAR DIAGNOSTIC STRIP TEST SCH ×4 (07:40→21:28)
[2017-12-07 08:00] VITALS: BP 125/68
[2017-12-07] MEDS: INSULIN LISPRO 100 UNITS/ML SUBCUT SCH ×4 (08:10→21:27)
[2017-12-07] MEDS: PANTOPRAZOLE SODIUM 40 MG/VIAL IV SCH (08:45)
[2017-12-07] MEDS: METHYLPREDNISOLONE SOD SUCC 40 MG/ML VIAL IV SCH (08:45)
[2017-12-07] MEDS: CALCIUM ACETATE 667MG CAPSULE PO SCH ×3 (08:45→18:24)
[2017-12-07] MEDS: FUROSEMIDE 40MG/4ML VIAL IVP SCH (08:45)
[2017-12-07] MEDS: CARVEDILOL 6.25 MG TABLET PO SCH ×2 (08:46→18:25)
[2017-12-07] MEDS: TACROLIMUS 1MG CAPSULE PO SCH ×2 (08:46→18:24)
[2017-12-07] MEDS: TACROLIMUS 0.5 MG CAPSULE PO SCH ×2 (08:46→18:25)
[2017-12-07] MEDS: MYCOPHENOLATE SODIUM 180 MG TABLET.DR PO SCH ×2 (08:46→18:25)
[2017-12-07] MEDS: CALCITRIOL 0.25MCG CAPSULE PO SCH (08:47)
[2017-12-07] MEDS: AMLODIPINE 10MG TABLET PO SCH (08:47)
[2017-12-07] MEDS: ALLOPURINOL 100 MG TABLET PO SCH (08:47)
[2017-12-07] MEDS: HYDROXYCHLOROQUINE SULFATE 200MG TABLET PO SCH ×2 (08:47→18:24)
[2017-12-07] MEDS: LORAZEPAM 1MG TABLET PO SCH ×3 (08:47→18:25)
[2017-12-07] MEDS: FOLIC ACID/VITAMIN B COMP W-C TABLET PO SCH (08:47)
[2017-12-07] MEDS ORDERED: EPOETIN ALFA 10000UNITS/ML VIAL SUBCUT SCH ×2 (09:00→21:00)
[2017-12-07 09:21] LABS: PLATELET ESTIMATE NORMAL
[2017-12-07 10:42] LABS: HEPATITIS B SURFACE ANTIGEN NEGATIVE
[2017-12-07 11:10] LABS: HEPATITIS B CORE AB IGM NEGATIVE
[2017-12-07 12:00] VITALS: BP 129/48
[2017-12-07] MEDS ORDERED: IOHEXOL-350 100 ML BOTTLE ONE ×2 (12:21→12:24)
[2017-12-07 16:00] VITALS: BP 143/54
[2017-12-07] MEDS ORDERED: METHYLPREDNISOLONE SOD SUCC 40 MG/ML VIAL IV SCH (17:00)
[2017-12-07 20:00] VITALS: BP 138/79
[2017-12-07] MEDS: ATORVASTATIN CALCIUM 10MG TABLET PO SCH (21:27)
[2017-12-07] MEDS: DIPHENHYDRAMINE 50MG/ML VIAL IV PRN (22:59)
[2017-12-08] VITALS: BP 136/49
[2017-12-08 04:00] VITALS: BP 122/48
[2017-12-08 05:41] LABS: HEMATOCRIT. 22.9 % (36.0-48.0); HEMOGLOBIN. 7.8 g/dL (12.0-16.0); MEAN CORPUSCULAR HEMOGLOBIN 29.7 pg (28.0-32.0); MEAN PLATELET VOLUME 8.1 fl (7.4-10.4); PLATELET 170 x1000/uL (130-400); RED BLOOD CELL COUNT 2.61 mill/uL (4.2-5.4); RED CELL DISTRIBUTION WIDTH 16.6 % (11.6-14.6)
[2017-12-08] MEDS: BLOOD SUGAR DIAGNOSTIC STRIP TEST SCH ×4 (07:40→20:56)
[2017-12-08 08:00] VITALS: BP 149/67
[2017-12-08] MEDS: INSULIN LISPRO 100 UNITS/ML SUBCUT SCH ×4 (08:10→20:56)
[2017-12-08 09:08] LABS: G6PD RBC 2.61 x10E6/uL (3.77-5.28)
[2017-12-08] MEDS: MYCOPHENOLATE SODIUM 180 MG TABLET.DR PO SCH ×2 (09:15→17:55)
[2017-12-08] MEDS: TACROLIMUS 1MG CAPSULE PO SCH ×2 (09:15→17:55)
[2017-12-08] MEDS: CALCIUM ACETATE 667MG CAPSULE PO SCH ×3 (09:16→17:55)
[2017-12-08] MEDS: CALCITRIOL 0.25MCG CAPSULE PO SCH (09:16)
[2017-12-08] MEDS: HYDROXYCHLOROQUINE SULFATE 200MG TABLET PO SCH ×2 (09:16→17:55)
[2017-12-08] MEDS: CARVEDILOL 6.25 MG TABLET PO SCH ×2 (09:16→17:55)
[2017-12-08] MEDS: LORAZEPAM 1MG TABLET PO SCH (09:16)
[2017-12-08] MEDS: ALLOPURINOL 100 MG TABLET PO SCH (09:17)
[2017-12-08] MEDS: AMLODIPINE 10MG TABLET PO SCH (09:17)
[2017-12-08] MEDS: PANTOPRAZOLE SODIUM 40 MG/VIAL IV SCH (09:17)
[2017-12-08] MEDS: FOLIC ACID/VITAMIN B COMP W-C TABLET PO SCH (09:17)
[2017-12-08] MEDS: ONDANSETRON HCL 4MG/2ML VIAL IV PRN (11:30)
[2017-12-08 12:00] VITALS: BP 129/42
[2017-12-08 13:50] LABS: PLATELET ESTIMATE NORMAL
[2017-12-08 16:00] VITALS: BP 168/70
[2017-12-08 20:00] VITALS: BP 146/67
[2017-12-08] MEDS: ATORVASTATIN CALCIUM 10MG TABLET PO SCH (20:56)
[2017-12-08] MEDS: DIPHENHYDRAMINE 50MG/ML VIAL IV PRN (23:16)
[2017-12-09] VITALS: BP 128/64
[2017-12-09] MEDS: ACETAMINOPHEN 325MG TABLET PO PRN ×2 (02:01→10:20)
[2017-12-09 04:00] VITALS: BP 129/57
[2017-12-09] MEDS: BLOOD SUGAR DIAGNOSTIC STRIP TEST SCH ×4 (07:40→21:16)
[2017-12-09 08:00] VITALS: BP 141/60
[2017-12-09] MEDS: INSULIN LISPRO 100 UNITS/ML SUBCUT SCH ×4 (08:10→21:17)
[2017-12-09] MEDS: CALCITRIOL 0.25MCG CAPSULE PO SCH (08:25)
[2017-12-09] MEDS: FOLIC ACID/VITAMIN B COMP W-C TABLET PO SCH (08:25)
[2017-12-09] MEDS: PANTOPRAZOLE SODIUM 40 MG/VIAL IV SCH (08:25)
[2017-12-09] MEDS: PREDNISONE 20MG TABLET PO SCH (08:26)
[2017-12-09] MEDS: CARVEDILOL 6.25 MG TABLET PO SCH ×2 (08:26→17:22)
[2017-12-09] MEDS: HYDROXYCHLOROQUINE SULFATE 200MG TABLET PO SCH ×2 (08:26→17:22)
[2017-12-09] MEDS: ALLOPURINOL 100 MG TABLET PO SCH (08:26)
[2017-12-09] MEDS: AMLODIPINE 10MG TABLET PO SCH (08:27)
[2017-12-09] MEDS: MYCOPHENOLATE SODIUM 180 MG TABLET.DR PO SCH ×2 (08:27→17:22)
[2017-12-09] MEDS: CALCIUM ACETATE 667MG CAPSULE PO SCH ×3 (08:28→17:21)
[2017-12-09] MEDS: TACROLIMUS 1MG CAPSULE PO SCH ×2 (08:28→17:21)
[2017-12-09 12:00] VITALS: BP 130/61
[2017-12-09 16:00] VITALS: BP 119/56
[2017-12-09] MEDS ORDERED: P20 PO (16:23)
[2017-12-09] MEDS ORDERED: NEPVIT PO (16:23)
[2017-12-09] MEDS ORDERED: CALC0.253 PO (16:23)
[2017-12-09] MEDS ORDERED: PROG1 PO (16:23)
[2017-12-09] MEDS ORDERED: ALLO100T PO (16:23)
[2017-12-09] MEDS ORDERED: DOCU-138 PO (16:23)
[2017-12-09] MEDS ORDERED: AMLO10TA80 PO (16:23)
[2017-12-09] MEDS ORDERED: ATOR10TA PO (16:23)
[2017-12-09] MEDS ORDERED: COR6 PO (16:23)
[2017-12-09] MEDS ORDERED: CALC667C PO (16:23)
[2017-12-09] MEDS ORDERED: EPOE10005 SUBCUT (16:23)
[2017-12-09] MEDS ORDERED: HYDR200T35 PO (16:23)
[2017-12-09 20:00] VITALS: BP 141/67
[2017-12-09] MEDS: ATORVASTATIN CALCIUM 10MG TABLET PO SCH (21:16)
[2017-12-09] MEDS: DIPHENHYDRAMINE 50MG/ML VIAL IV PRN (23:27)
[2017-12-10] VITALS (8 sets, daily range): BP systolic 123–135; BP diastolic 46–72
[2017-12-10] MEDS: ACETAMINOPHEN 325MG TABLET PO PRN (02:37)
[2017-12-10] MEDS: DIPHENHYDRAMINE 50MG/ML VIAL IV PRN (05:00)
[2017-12-10] MEDS: BLOOD SUGAR DIAGNOSTIC STRIP TEST SCH ×3 (06:48→17:40)
[2017-12-10 07:14] LABS: HEMATOCRIT. 21.5 % (36.0-48.0); HEMOGLOBIN. 7.3 g/dL (12.0-16.0); MEAN CORPUSCULAR HEMOGLOBIN 29.9 pg (28.0-32.0); MEAN CORPUSCULAR VOLUME 88.2 fL (81.0-99.0); MEAN PLATELET VOLUME 8.1 fl (7.4-10.4); PLATELET 165 x1000/uL (130-400); RED BLOOD CELL COUNT 2.44 mill/uL (4.2-5.4); RED CELL DISTRIBUTION WIDTH 16.8 % (11.6-14.6)
[2017-12-10 07:50] LABS: PHOSPHORUS 5.3 mg/dL (2.5-4.9)
[2017-12-10] MEDS: INSULIN LISPRO 100 UNITS/ML SUBCUT SCH ×3 (08:10→18:28)
[2017-12-10 08:20] LABS: DRVVT LA 42.6 sec (0.0-47.0); LUPUS ANTICOAG INTERPRETATION Comment: (.); PTT-LA 33.6 sec (0.0-51.9)
[2017-12-10] MEDS: PANTOPRAZOLE SODIUM 40 MG/VIAL IV SCH (09:06)
[2017-12-10] MEDS: MYCOPHENOLATE SODIUM 180 MG TABLET.DR PO SCH ×2 (09:07→16:32)
[2017-12-10] MEDS: PREDNISONE 20MG TABLET PO SCH (09:07)
[2017-12-10] MEDS: TACROLIMUS 1MG CAPSULE PO SCH ×2 (09:07→16:32)
[2017-12-10] MEDS: CALCIUM ACETATE 667MG CAPSULE PO SCH ×3 (09:07→18:19)
[2017-12-10] MEDS: FOLIC ACID/VITAMIN B COMP W-C TABLET PO SCH (09:07)
[2017-12-10] MEDS: CALCITRIOL 0.25MCG CAPSULE PO SCH (09:07)
[2017-12-10] MEDS: ALLOPURINOL 100 MG TABLET PO SCH (09:07)
[2017-12-10] MEDS: AMLODIPINE 10MG TABLET PO SCH (09:08)
[2017-12-10 09:11] LABS: ANTI-CARDIOLIPIN AB IGA < 9 APL U/mL (0-11); ANTI-CARDIOLIPIN AB IGG < 9 GPL U/mL (0-14); ANTI-CARDIOLIPIN AB IGM 10 MPL U/mL (0-12); GLOMERULAR BASEMENT MEMB AB 2 units (0-20)
[2017-12-10] MEDS: CARVEDILOL 6.25 MG TABLET PO SCH ×2 (09:13→16:35)
[2017-12-10] MEDS ORDERED: LORAZEPAM 0.5MG TABLET PO PRN (10:00)
[2017-12-10] MEDS ORDERED: PREDNISONE 10MG TABLET PO SCH (10:30)
[2017-12-10 13:07] LABS: ANTI-MYELOPEROXIDASE AB < 9.0 U/mL (0.0-9.0); ANTI-PROTEINASE 3 ABS < 3.5 U/mL (0.0-3.5); ATYPICAL P-ANCA <1:20 titer (Neg:<1:20); CYTOPLASMIC C-ANCA <1:20 titer (Neg:<1:20); PERINUCLEAR P-ANCA <1:20 titer (Neg:<1:20)
[2017-12-10] MEDS ORDERED: HEPARIN SODIUM 1,000 UNIT/1ML VIAL IV NR (14:00)
[2017-12-10 17:07] LABS: RNP ANTIBODY 0.3 AI (0.0-0.9); SMITH ANTIBODY < 0.2 AI (0.0-0.9)
[2017-12-10 17:54] LABS: PLATELET ESTIMATE NORMAL
[2017-12-10] MEDS ORDERED: TEMAZEPAM 15MG CAPSULE PO PRN (21:00)
[2017-12-11 04:16] LABS: G6PD QUANTITATIVE 352 (146-376)
== END 2017-12-10 19:40 | disposition home or self-care (01) | DRG 720 ==
LOC: ER 11:15 → 7WST 12:14 → ENRESERV 12:39
PROVIDERS: ADMIT Internal Medicine; ATTEND Internal Medicine
PROC: 5A1D70Z Performance of Urinary Filtration, Intermittent, Less than 6 Hours Per Day (ICD-10-PCS; 2017-12-03)
PROC: 5A1D70Z Performance of Urinary Filtration, Intermittent, Less than 6 Hours Per Day (ICD-10-PCS; 2017-12-04)
PROC: 0TB03ZX Excision of Right Kidney, Percutaneous Approach, Diagnostic (ICD-10-PCS; 2017-12-04)
PROC: 5A1D70Z Performance of Urinary Filtration, Intermittent, Less than 6 Hours Per Day (ICD-10-PCS; 2017-12-06)
PROC: B5181ZA Fluoroscopy of Superior Vena Cava using Low Osmolar Contrast, Guidance (ICD-10-PCS; 2017-12-07)
PROC: 02HV33Z Insertion of Infusion Device into Superior Vena Cava, Percutaneous Approach (ICD-10-PCS; 2017-12-07)
PROC: B548ZZA Ultrasonography of Superior Vena Cava, Guidance (ICD-10-PCS; 2017-12-07)
PROC: 30233N1 Transfusion of Nonautologous Red Blood Cells into Peripheral Vein, Percutaneous Approach (ICD-10-PCS; principal; 2017-12-10)
PROC: 5A1D70Z Performance of Urinary Filtration, Intermittent, Less than 6 Hours Per Day (ICD-10-PCS; 2017-12-10)
DX: A41.9 Sepsis, unspecified organism (principal); N17.0 Acute kidney failure with tubular necrosis; I13.2 Hypertensive heart and chronic kidney disease with heart failure and with stage 5 chronic kidney disease, or end stage renal disease; T86.11 Kidney transplant rejection; E46 Unspecified protein-calorie malnutrition; N25.81 Secondary hyperparathyroidism of renal origin; N18.6 End stage renal disease; D69.6 Thrombocytopenia, unspecified; Q89.09 Congenital malformations of spleen; E87.5 Hyperkalemia; M32.14 Glomerular disease in systemic lupus erythematosus; M32.9 Systemic lupus erythematosus, unspecified; I50.32 Chronic diastolic (congestive) heart failure; K80.20 Calculus of gallbladder without cholecystitis without obstruction; D64.9 Anemia, unspecified; A03.9 Shigellosis, unspecified; B01.9 Varicella without complication; E78.5 Hyperlipidemia, unspecified; F41.9 Anxiety disorder, unspecified; G89.4 Chronic pain syndrome; I77.6 Arteritis, unspecified; M13.0 Polyarthritis, unspecified; T38.0X5A Adverse effect of glucocorticoids and synthetic analogues, initial encounter; Y92.89 Other specified places as the place of occurrence of the external cause; Z79.52 Long term (current) use of systemic steroids; Z83.3 Family history of diabetes mellitus; Z90.710 Acquired absence of both cervix and uterus; Z99.2 Dependence on renal dialysis; Z79.899 Other long term (current) drug therapy; Z98.51 Tubal ligation status; Z68.33 Body mass index [BMI] 33.0-33.9, adult
CPT/HCPCS: 36415; 36569; 71045; 71275; 74176; 76700; 76937; 77001; 77012; 80048; 80053; 80076; 80197; 82270; 82550; 82565; 82570; 82607; 82728; 82746; 82747; 82955; 82962; 82977; 83036; 83520; 83540; 83550; 83605; 83690; 83735; 83880; 83970; 84100; 84443; 84484; 84550; 85014; 85025; 85041; 85044; 85379; 85610; 85613; 85651; 85732; 86147; 86160; 86162; 86225; 86235; 86256; 86592; 86705; 86706; 86780; 86803; 86850; 86880; 86900; 86920; 87015; 87040; 87045; 87340; 87427; 87449; 88305; 88346; 88348; 89055; 93005; 93922; 96361; 96374; 97162; 99285; C1725; C1893; C9113; J0885; J1200; J1644; J1815; J1940; J2250; J2405; J2920; J2930; J3010; J3490; J7030; J7040; J7050; J7060; J7507; J7512; J7517; P9016; Q9967

== ENCOUNTER 2018-08-05 11:34 | Inpatient (IN) | payer MEDICARE, MEDICAID ==
[~2018-08-05] VITALS: Ht 165.1 cm; Wt 73.9 kg
[~2018-08-05 11:34] MED LIST changes: -AMLO5TAB4 PO; +CALC667C PO; +DOCU-138 PO; +EPOE10005 SUBCUT; +NEPVIT PO; -PRED5TAB PO; -PROG1 PO
[2018-08-05 13:36] LABS: CHLORIDE 113 mEq/L (98-107)
[2018-08-05 14:24] LABS: BASOPHILS % 0.3 % (0.0-2.0); EOSINOPHILS % 2.5 % (0.0-5.0); LYMPHOCYTES % 9.9 % (20.0-50.0); MEAN CORPUSCULAR HEMOGLOBIN 31.7 pg (28.0-32.0); MEAN CORPUSCULAR VOLUME 97.5 fL (81.0-99.0); MEAN PLATELET VOLUME 7.1 fl (7.4-10.4); MONOCYTES % 7.4 % (2.0-8.0); NEUTROPHILS % 79.9 % (40.0-76.0); PLATELET 238 x1000/uL (130-400); RED BLOOD CELL COUNT 2.01 mill/uL (4.2-5.4)
[2018-08-05 14:25] LABS: HEMOGLOBIN. 6.4 g/dL (12.0-16.0)
[2018-08-05 14:26] LABS: HEMATOCRIT. 19.6 % (36.0-48.0)
[2018-08-05] MEDS ORDERED: FAMOTIDINE 20MG/2ML VIAL IV ONE (17:15)
[2018-08-05] MEDS ORDERED: IPRATROPIUM/ALBUTEROL 0.5-3(2.5)MG/3ML NEB INH PRN (17:30)
[2018-08-05] MEDS ORDERED: DIPHENHYDRAMINE 50MG/ML VIAL IV PRN (17:30)
[2018-08-05] MEDS ORDERED: CLONIDINE 0.1MG TABLET PO PRN (17:30)
[2018-08-05] MEDS ORDERED: DOCUSATE SODIUM 100MG CAPSULE PO PRN (17:30)
[2018-08-05] MEDS ORDERED: ONDANSETRON HCL 4MG/2ML INJ IV PRN (17:30)
[2018-08-05] MEDS ORDERED: LORAZEPAM 2MG/ML CPJ IV PRN (17:30)
[2018-08-05] MEDS ORDERED: HYDROCODONE/APAP 7.5/325MG 1 TAB TABLET PO PRN (17:30)
[2018-08-05] MEDS ORDERED: GUAIFENESIN 200MG/10ML SUGAR FREE UDC PO PRN (17:30)
[2018-08-05] MEDS ORDERED: MAGNESIUM/ALUMINUM HYDROXIDE/SIMETHICONE 30ML UDC PO PRN (17:30)
[2018-08-05 17:53] VITALS: BP 123/57
[2018-08-05] MEDS ORDERED: MEDICATION NOT ON FORMULARY EA (Zolpidem Tartrate 1 TAB) PO PRN (18:15)
[2018-08-05 19:50] VITALS: BP 105/54
[2018-08-05 20:00] VITALS: BP 105/54
[2018-08-05] MEDS ORDERED: HYDRALAZINE 20MG/ML VIAL IV PRN (20:00)
[2018-08-05] MEDS ORDERED: HYDROMORPHONE HCL/PF 2MG/ML CPJ IV PRN (20:00)
[2018-08-05] MEDS ORDERED: METH500T PO (20:15)
[2018-08-05] MEDS ORDERED: PROG1 PO (20:15)
[2018-08-05] MEDS ORDERED: PRED5TAB PO (20:15)
[2018-08-05] MEDS ORDERED: FERR325T6 PO (20:15)
[2018-08-05] MEDS: ACETAMINOPHEN 325MG TABLET PO PRN (20:22)
[2018-08-05] MEDS: SODIUM CHLORIDE 0.9% INJ 3ML FLUSH IVF SCH (20:25)
[2018-08-05] MEDS ORDERED: ZOLPIDEM TARTRATE 5MG TABLET PO PRN (21:00)
[2018-08-05 22:15] VITALS: BP 105/50
[2018-08-05 22:30] VITALS: BP 115/52
[2018-08-05 23:30] VITALS: BP 112/54
[2018-08-06] VITALS (8 sets, daily range): BP systolic 108–132; BP diastolic 52–57
[2018-08-06 02:18] LABS: BASOPHILS % 0.3 % (0.0-2.0); EOSINOPHILS % 1.9 % (0.0-5.0); HEMATOCRIT. 22.5 % (36.0-48.0); HEMOGLOBIN. 7.3 g/dL (12.0-16.0); LYMPHOCYTES % 13.6 % (20.0-50.0); MEAN CORPUSCULAR HEMOGLOBIN 30.8 pg (28.0-32.0); MEAN CORPUSCULAR VOLUME 95.2 fL (81.0-99.0); MEAN PLATELET VOLUME 7.2 fl (7.4-10.4); MONOCYTES % 8.3 % (2.0-8.0); NEUTROPHILS % 75.9 % (40.0-76.0); PLATELET 236 x1000/uL (130-400); RED BLOOD CELL COUNT 2.36 mill/uL (4.2-5.4); RED CELL DISTRIBUTION WIDTH 19.2 % (11.6-14.6)
[2018-08-06 02:35] LABS: CREATINE KINASE 20 IU/L (26-192); CREATINE KINASE MB FRACTION < 1.0 ng/mL (0.5-3.6)
[2018-08-06] MEDS: SODIUM CHLORIDE 0.9% INJ 3ML FLUSH IVF SCH ×3 (04:51→20:08)
[2018-08-06] MEDS: IRON SUCROSE COMPLEX 100 MG/5 ML ML IV SCH (04:51)
[2018-08-06] MEDS ORDERED: LIDOCAINE HCL 1% 20ML VIAL (Pyxis) INJ ONE (07:52)
[2018-08-06] MEDS: ACETAMINOPHEN 325MG TABLET PO PRN ×2 (08:54→23:31)
[2018-08-06] MEDS: PANTOPRAZOLE SODIUM 40 MG/VIAL IV SCH (08:54)
[2018-08-06] MEDS: MYCOPHENOLATE MOFETIL 500MG TABLET PO SCH ×2 (08:55→18:15)
[2018-08-06] MEDS: DOCUSATE SODIUM 100MG CAPSULE PO SCH ×3 (08:55→18:15)
[2018-08-06] MEDS: BENAZEPRIL 10MG TABLET PO SCH ×2 (08:56→20:14)
[2018-08-06 10:36] LABS: CHLORIDE 115 mEq/L (98-107)
[2018-08-06 10:52] LABS: CREATINE KINASE 17 IU/L (26-192)
[2018-08-06 10:53] LABS: CREATINE KINASE MB FRACTION < 1.0 ng/mL (0.5-3.6)
[2018-08-06 17:01] LABS: TOTAL IRON BINDING CAPACITY 226 ug/dL (250-450)
[2018-08-06 17:15] LABS: FOLIC ACID (FOLATE) SERUM >20 ng/mL ng/mL (>5.38)
[2018-08-06 17:21] LABS: FERRITIN 619 ng/mL (10-291)
[2018-08-06 17:26] LABS: VITAMIN B12 SERUM >2000 pg/mL pg/mL (211-911)
[2018-08-06] MEDS: TACROLIMUS 1MG CAPSULE PO SCH (18:15)
[2018-08-06] MEDS: ATORVASTATIN CALCIUM 10MG TABLET PO SCH (20:08)
[2018-08-06] MEDS ORDERED: EPOETIN ALFA 4000UNITS/ML VIAL SUBCUT SCH (21:00)
[2018-08-07] VITALS (9 sets, daily range): BP systolic 112–135; BP diastolic 43–80
[2018-08-07] MEDS: SODIUM CHLORIDE 0.9% INJ 3ML FLUSH IVF SCH ×3 (05:06→20:09)
[2018-08-07] MEDS: IRON SUCROSE COMPLEX 100 MG/5 ML ML IV SCH (05:06)
[2018-08-07] MEDS: OMEPRAZOLE 20MG CAPSULE EXTENDED RELEASE PO SCH (06:27)
[2018-08-07 08:14] LABS: BASOPHILS % 0.4 % (0.0-2.0); EOSINOPHILS % 3.1 % (0.0-5.0); LYMPHOCYTES % 14.4 % (20.0-50.0); MEAN CORPUSCULAR HEMOGLOBIN 31.2 pg (28.0-32.0); MEAN CORPUSCULAR VOLUME 94.2 fL (81.0-99.0); MEAN PLATELET VOLUME 7.4 fl (7.4-10.4); MONOCYTES % 9.7 % (2.0-8.0); NEUTROPHILS % 72.4 % (40.0-76.0); PLATELET 236 x1000/uL (130-400); RED BLOOD CELL COUNT 2.24 mill/uL (4.2-5.4); RED CELL DISTRIBUTION WIDTH 19.7 % (11.6-14.6)
[2018-08-07 08:48] LABS: HEMATOCRIT. 21.1 % (36.0-48.0)
[2018-08-07] MEDS: TACROLIMUS 1MG CAPSULE PO SCH ×2 (09:37→18:08)
[2018-08-07] MEDS: ALLOPURINOL 100 MG TABLET PO SCH (09:40)
[2018-08-07] MEDS: DOCUSATE SODIUM 100MG CAPSULE PO SCH ×3 (09:41→18:07)
[2018-08-07] MEDS: PREDNISONE 5MG TABLET PO SCH (09:44)
[2018-08-07] MEDS: BENAZEPRIL 10MG TABLET PO SCH ×2 (09:44→20:09)
[2018-08-07] MEDS: MULTIVITAMINS,THER W-MINERALS TABLET PO SCH (09:44)
[2018-08-07] MEDS: ACETAMINOPHEN 325MG TABLET PO PRN (09:45)
[2018-08-07] MEDS: PANTOPRAZOLE SODIUM 40 MG/VIAL IV SCH (09:45)
[2018-08-07] MEDS ORDERED: DOCUSATE SODIUM 250MG CAPSULE PO SCH (12:00)
[2018-08-07] MEDS: MYCOPHENOLATE SODIUM 180 MG TABLET.DR PO SCH ×2 (12:11→18:08)
[2018-08-07 17:24] LABS: HEMATOCRIT 25.9 % (36.0-48.0); HEMOGLOBIN 8.5 g/dL (12.0-16.0)
[2018-08-07] MEDS: ATORVASTATIN CALCIUM 10MG TABLET PO SCH (20:08)
[2018-08-08 00:15] VITALS: BP 129/57
[2018-08-08 04:00] VITALS: BP 131/53
[2018-08-08] MEDS: SODIUM CHLORIDE 0.9% INJ 3ML FLUSH IVF SCH (06:09)
[2018-08-08] MEDS: OMEPRAZOLE 20MG CAPSULE EXTENDED RELEASE PO SCH (06:09)
[2018-08-08 07:27] LABS: BASOPHILS % 0.4 % (0.0-2.0); EOSINOPHILS % 3.4 % (0.0-5.0); HEMATOCRIT. 24.6 % (36.0-48.0); LYMPHOCYTES % 16.2 % (20.0-50.0); MEAN CORPUSCULAR HEMOGLOBIN 30.6 pg (28.0-32.0); MEAN PLATELET VOLUME 7.5 fl (7.4-10.4); MONOCYTES % 9.7 % (2.0-8.0); NEUTROPHILS % 70.3 % (40.0-76.0); PLATELET 219 x1000/uL (130-400); RED BLOOD CELL COUNT 2.61 mill/uL (4.2-5.4); RED CELL DISTRIBUTION WIDTH 17.9 % (11.6-14.6)
[2018-08-08 08:00] VITALS: BP 107/49
[2018-08-08] MEDS: MULTIVITAMINS,THER W-MINERALS TABLET PO SCH (08:18)
[2018-08-08] MEDS: ALLOPURINOL 100 MG TABLET PO SCH (08:18)
[2018-08-08] MEDS: TACROLIMUS 1MG CAPSULE PO SCH (08:18)
[2018-08-08] MEDS: DOCUSATE SODIUM 100MG CAPSULE PO SCH (08:18)
[2018-08-08] MEDS: PANTOPRAZOLE SODIUM 40 MG/VIAL IV SCH (08:18)
[2018-08-08] MEDS: MYCOPHENOLATE SODIUM 180 MG TABLET.DR PO SCH (08:19)
[2018-08-08] MEDS: PREDNISONE 5MG TABLET PO SCH (08:19)
[2018-08-08 08:43] VITALS: BP 107/49
[2018-08-08] MEDS: BENAZEPRIL 10MG TABLET PO SCH (09:00)
== END 2018-08-08 13:20 | disposition home or self-care (01) | DRG 377 ==
LOC: ER 12:22 → ENRESERV 15:26 → 8WST 16:45 → EDBEDREQTM 16:51 → EDBEDREQ 16:51 → ENRESERV 19:24 → CANRESERV 19:24
PROVIDERS: ADMIT Internal Medicine; ATTEND Internal Medicine
PROC: 30233N1 Transfusion of Nonautologous Red Blood Cells into Peripheral Vein, Percutaneous Approach (ICD-10-PCS; principal; 2018-08-05)
PROC: 0JPT3XZ Removal of Tunneled Vascular Access Device from Trunk Subcutaneous Tissue and Fascia, Percutaneous Approach (ICD-10-PCS; 2018-08-06)
DX: K92.2 Gastrointestinal hemorrhage, unspecified (principal); N18.6 End stage renal disease; E46 Unspecified protein-calorie malnutrition; Z94.0 Kidney transplant status; I95.9 Hypotension, unspecified; K64.9 Unspecified hemorrhoids; D64.9 Anemia, unspecified; M32.9 Systemic lupus erythematosus, unspecified; I11.9 Hypertensive heart disease without heart failure; K21.9 Gastro-esophageal reflux disease without esophagitis; K59.09 Other constipation; K80.20 Calculus of gallbladder without cholecystitis without obstruction; M06.9 Rheumatoid arthritis, unspecified; M19.90 Unspecified osteoarthritis, unspecified site; Z68.27 Body mass index [BMI] 27.0-27.9, adult; Z99.2 Dependence on renal dialysis; Z90.710 Acquired absence of both cervix and uterus; Z79.899 Other long term (current) drug therapy
CPT/HCPCS: 36415; 36589; 71045; 80048; 80197; 82270; 82550; 82553; 82607; 82728; 82746; 83540; 83550; 83880; 84443; 84484; 85014; 85018; 86850; 86900; 86920; 93005; 96374; 96375; 99285; C9113; J0885; J3490; J7040; J7050; J7507; J7512; J7517; P9016